=== PATIENT | male | born 1975 | race Caucasian/White ===

== ENCOUNTER 2018-05-24 08:39 | Emergency (ER) | payer BC ==
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
== END 2018-05-24 10:55 | disposition home or self-care (01) ==
LOC: ER 08:39
DX: M54.2 Cervicalgia (principal); R07.89 Other chest pain; R07.81 Pleurodynia; V49.49XA Driver injured in collision with other motor vehicles in traffic accident, initial encounter; F17.210 Nicotine dependence, cigarettes, uncomplicated
CPT/HCPCS: 72040; 99283